=== PATIENT | female | born 1940 | race Caucasian/White ===

== ENCOUNTER 2017-09-07 06:55 | Day surgery (SDC) | payer MEDICARE ==
[2017-09-04 09:23] VITALS: BMI 38.6
[2017-09-07 08:23] LABS: #Lymphocytes 2.2 thou/uL (1.20-3.40); #Monocytes 0.5 thou/uL (0.11-0.59); #Neutrophils 4.8 thou/uL (1.40-6.50); %Basophils 0.5 % (0.0-1.0); %Eosinophils 0.5 % (0.0-10.0); %Lymphocytes 28.5 % (21.0-51.0); Hematocrit 38.7 % (36.0-47.0); Mean Platelet Volume 8.9 fL (7.4-10.4); Red Blood Cell (RBC) Count 4.16 mill/uL (4.20-5.40); White Blood Cell (WBC) Count 7.6 thou/uL (4.8-10.8)
[2017-09-07 08:32] LABS: PTT 32.8 SEC (22.9-36.1); Prothrombin Time 19.4 SEC (12.0-14.7)
[2017-09-07 08:41] LABS: Anion Gap 13 mmol/L (10-20); BUN (Urea Nitrogen) 27 mg/dL (9.8-20.1); Calc. Creatinine Clearance 52 mL/min (70-130); Calcium 9.6 mg/dL (7.8-10.44); Carbon Dioxide 25 mmol/L (23-31); Chloride 104 mmol/L (98-107); Estimated GFR-MDRD 34
[2017-09-07] MEDS ORDERED: Lidocaine 1% PF 5 ML VIAL ONE (09:26)
[2017-09-07] MEDS ORDERED: Propofol 200 MG/20 ML VIAL ONE (09:26)
--- NOTE | 2017-09-07 11:04 | OP ---
DATE OF PROCEDURE: 09/07/2017 PROCEDURE: Cardioversion. Ms. Cummins is a 77-year-old female with a history of persistent atrial fibrillation, status left of pul monary venous isolation procedure and prior pacemaker implantation for tachybrady syndrome. Now she is here for an early recurrence of atrial fibrillation, amiodarone has been restarted. Also, the pat ient has been anticoagulated with Eliquis without missing a dose. PROCEDURE: The patient received deep sedation by Anesthesia specialist with propofol. After adequat e level of sedation achieved, a synchronized 75 joule shock converted the patient back to sinus rhyth m. On repeat, 150 joule shock was unsuccessful. Eventually, a 300 joule shock converted her back to sinus rhythm. CONCLUSION: Successful cardioversion. PLAN: For now, continue amiodarone, taper down to 200 mg a day. Continue anticoagulation with Eliqu is. The patient is interested in switching back to Pradaxa due to financial reasons which could be p robably done at the next visit. We will interrogate the pacemaker and ascertain adequate function and likely turn atrial antitachycar stephen pacing therapies on if available.
== END 2017-09-07 11:35 | disposition home or self-care (01) ==
LOC: CCL 06:55
PROVIDERS: ATTEND Internal Medicine Cardiovascular Disease
DX: I48.1 Persistent atrial fibrillation (principal); I10 Essential (primary) hypertension; E66.9 Obesity, unspecified; Z68.38 Body mass index [BMI] 38.0-38.9, adult; Z79.01 Long term (current) use of anticoagulants; Z79.899 Other long term (current) drug therapy; Z95.0 Presence of cardiac pacemaker; Z90.49 Acquired absence of other specified parts of digestive tract; Z98.890 Other specified postprocedural states
CPT/HCPCS: 36415; 80048; 85025; 85610; 85730; 92960; 93005; 93010; J2001; J2704

== ENCOUNTER 2020-05-15 23:55 | Emergency (ER) | payer MEDICARE, MEDICAID ==
[2020-05-16 00:41] LABS: #Lymphocytes 0.6 thou/uL (1.20-3.40); #Monocytes 0.6 thou/uL (0.11-0.59); #Neutrophils 6.3 thou/uL (1.40-6.50); %Basophils 0.1 % (0.0-1.0); %Eosinophils 0.6 % (0.0-10.0); %Lymphocytes 8.4 % (21.0-51.0); Hemoglobin 11.5 g/dL (12.0-16.0); Mean Corpuscular HGB CONC 31.8 g/dL (32.0-36.0); Mean Corpuscular Hemoglobin 28.5 pg (27.0-31.0); Mean Corpuscular Volume 89.8 fL (78.0-98.0); Mean Platelet Volume 10.1 fL (7.4-10.4); Platelet Count 185 thou/uL (130-400); RBC Distribution Width 13.2 % (11.5-14.5); Red Blood Cell (RBC) Count 4.03 mill/uL (4.20-5.40); White Blood Cell (WBC) Count 7.6 thou/uL (4.8-10.8)
[2020-05-16 01:03] LABS: ALT (SGPT) 13 U/L (8-55); AST (SGOT) 15 U/L (5-34); Albumin 3.6 g/dL (3.4-4.8); Alkaline Phosphatase 61 U/L (40-110); Anion Gap 15 mmol/L (10-20); BUN (Urea Nitrogen) 40 mg/dL (9.8-20.1); Bilirubin, Total 0.2 mg/dL (0.2-1.2); Calc. Creatinine Clearance 0 mL/min (70-130); Calcium 8.5 mg/dL (7.8-10.44); Carbon Dioxide 19 mmol/L (23-31); Chloride 103 mmol/L (98-107); Estimated GFR-MDRD 16; Globulin 2.2 g/dL (2.4-3.5); Glucose 108 mg/dL (83-110); Potassium 4.2 mmol/L (3.5-5.1); Protein, Total 5.8 g/dL (6.0-8.3); Sodium 133 mmol/L (136-145)
[2020-05-16 02:05] LABS: Bilirubin Negative (Negative); Blood, Urine Negative (Negative); Clarity Clear (Clear); Glucose, Urine (Dipstick) Normal (Negative); Ketone, Urine Negative (Negative); Leukocyte Negative Leu/uL (Negative); Nitrite Negative (Negative); Protein, Urine (Dipstick) Negative (Neg-Trace); Urobilinogen Normal mg/dL (Less than 2); pH, Urine 5.5 (5.0-9.0)
== END 2020-05-16 05:44 | disposition home or self-care (01) ==
LOC: ERS 23:55
DX: I95.1 Orthostatic hypotension (principal); I48.91 Unspecified atrial fibrillation; I50.9 Heart failure, unspecified; Z87.891 Personal history of nicotine dependence; Z79.01 Long term (current) use of anticoagulants; Z79.899 Other long term (current) drug therapy
CPT/HCPCS: 36415; 80053; 81003; 83605; 84484; 85025; 87040; 93005

== ENCOUNTER 2020-05-16 20:40 | Inpatient (IN) | payer MEDICARE, MEDICAID ==
[2020-05-16 21:24] LABS: Bilirubin Negative (Negative); Blood, Urine Negative (Negative); Clarity Clear (Clear); Glucose, Urine (Dipstick) Normal (Negative); Ketone, Urine Negative (Negative); Leukocyte Negative Leu/uL (Negative); Nitrite Negative (Negative); Protein, Urine (Dipstick) Negative (Neg-Trace); Specific Gravity, Urine 1.016 (1.002-1.036); Urobilinogen Normal mg/dL (Less than 2)
--- NOTE | 2020-05-16 21:24 | RAD ---
Exam: Chest one view HISTORY:Fever Comparison: 03/23/2013 FINDINGS: Cardiac silhouette:Cardiomegaly. Left-sided transvenous pacemaker with lead positioned over the expec dhara region of the right atrium and right ventricle Aorta: Atherosclerosis Pulmonary vessels: Normal Costophrenic angles: Clear LUNGS: Patchy interstitial opacities. Correlate for edema or infiltrate.. Pneumothorax: None Osseous abnormalities: None IMPRESSION: 1. Patchy interstitial opacities. Correlate for edema or infiltrate. Atherosclerosis.
[2020-05-16] MEDS ORDERED: cefTRIAXone\\ROCEPHIN 2 GM VIAL ONE (21:57)
[2020-05-16] MEDS ORDERED: Azithromycin 250 MG TAB ONE (21:57)
[2020-05-16] MEDS ORDERED: Acetaminophen 325 MG TAB ONE (21:57)
[2020-05-16 22:01] LABS: #Lymphocytes 0.4 thou/uL (1.20-3.40); #Monocytes 0.5 thou/uL (0.11-0.59); #Neutrophils 7.5 thou/uL (1.40-6.50); %Eosinophils 0.4 % (0.0-10.0); %Lymphocytes 4.4 % (21.0-51.0); %Neutrophils 89.2 % (42.0-75.0); Hemoglobin 10.8 g/dL (12.0-16.0); Mean Corpuscular HGB CONC 32.7 g/dL (32.0-36.0); Mean Corpuscular Hemoglobin 29.8 pg (27.0-31.0); Mean Corpuscular Volume 91.2 fL (78.0-98.0); Mean Platelet Volume 9.8 fL (7.4-10.4); Platelet Count 153 thou/uL (130-400); RBC Distribution Width 13.1 % (11.5-14.5); Red Blood Cell (RBC) Count 3.64 mill/uL (4.20-5.40); White Blood Cell (WBC) Count 8.4 thou/uL (4.8-10.8)
[2020-05-16 22:08] LABS: ALT (SGPT) 15 U/L (8-55); AST (SGOT) 25 U/L (5-34); Albumin 3.4 g/dL (3.4-4.8); Alkaline Phosphatase 53 U/L (40-110); Anion Gap 14 mmol/L (10-20); BUN (Urea Nitrogen) 37 mg/dL (9.8-20.1); Bilirubin, Total 0.2 mg/dL (0.2-1.2); Calc. Creatinine Clearance 0 mL/min (70-130); Calcium 8.1 mg/dL (7.8-10.44); Carbon Dioxide 18 mmol/L (23-31); Chloride 104 mmol/L (98-107); Estimated GFR-MDRD 18; Globulin 2.5 g/dL (2.4-3.5); Glucose 101 mg/dL (83-110); Potassium 3.9 mmol/L (3.5-5.1); Protein, Total 5.9 g/dL (6.0-8.3); Sodium 132 mmol/L (136-145)
[2020-05-16 23:24] LABS: SARS-CoV-2 NAA Rapid Test Not Detected (NotDetected)
[2020-05-17 00:49] LABS: Lactic Acid 0.9 mmol/L (0.5-2.2)
[2020-05-17] MEDS ORDERED: HYDROcodone/Acetaminophen 5/325 mg Tablet PO PRN (01:42)
[2020-05-17] MEDS ORDERED: cloNIDine 0.1 MG TAB PO PRN (01:42)
[2020-05-17] MEDS ORDERED: Acetaminophen 325 MG TAB PO PRN (01:42)
[2020-05-17] MEDS ORDERED: Labetalol HCl 100 MG/20 ML VIAL SLOW IVP PRN (01:42)
[2020-05-17] MEDS ORDERED: Guaifenesin DM 100-10/5 ML UDCUP PO PRN (01:42)
[2020-05-17] MEDS ORDERED: Ondansetron PF 4 MG/2 ML Vial IVP PRN (01:42)
[2020-05-17] MEDS ORDERED: Morphine 2 MG/ML VIAL SLOW IVP PRN (01:42)
[2020-05-17] MEDS ORDERED: Promethazine HCl 12.5 MG in Sodium Chloride 0.9% 50 ML IVPB PRN (01:42)
[2020-05-17] MEDS ORDERED: hydrALAZINE 20 MG/ML VIAL SLOW IVP PRN (01:42)
--- NOTE | 2020-05-17 01:45 | PDOC.HHP ---
Hospitalist HPI - History of Present Illness Shortness of breath, near syncope History of Present Illness: Patient is an 80 year old female with PMH afib w/ pacemaker who presents to ED for fall x2. She reports 2 falls in restroom landing on bottom in restroom, she has chronic sciatica and R hip arthritis whch have been worse since then, she reports dehydration last few days. She reports dizziness. Denies head trauma or loc. She has recent UTI dx and on bactrim. She denies fever, cough, chest pain. She has pacemaker, sees Dr Humphrey for afib, has had 5 dccv and still has afib, on eliquis and compliant. In ED, labs significant for Cr 2.5, na 132, hgb 10. la 2.5, infiltrates patchy concerning for edema or infiltrate. patient admitted for workup of the above. given azithromycin and ceftriaxone for possible pneumonia. given NS for lactic acid elevation. COVID rapid swab negative. Hospitalist ROS - Review of Systems Constitutional: reports: weakness, malaise Eyes: denies: pain, vision change, conjunctivae inflammation, eyelid inflammation, redness, other ENT: denies: ear pain, ear discharge, nose pain, nose discharge, nose congestion , mouth pain, mouth swelling, throat pain, throat swelling, other Respiratory: denies: cough, dry, shortness of breath, hemoptysis, SOB with excertion, pleuritic pain, sputum, wheezing, other Cardiovascular: denies: chest pain, palpitations, orthopnea, paroxysmal noc. dyspnea, edema, light headedness, other Gastrointestinal: denies: nausea, vomiting, abdominal pain, diarrhea, constipation, melena, hematochezia, other Genitourinary: denies: dysuria, frequency, incontinence, hematuria, retention, other Musculoskeletal: denies: neck pain, shoulder pain, arm pain, back pain, hand pain, leg pain, foot pain, other Skin: denies: rash, lesions, ra, bruising, other Neurological: denies: weakness, numbness, incoordination, change in speech, confusion, seizures, other Other: dizziness, near syncope All other systems reviewed; all pertinent +/- noted in HPI/Subj Hospitalist History - Past Medical History Other Medical History: afib, chf - Past Surgical History Other Surgical History: pacemaker - Family History Family History: reports: no pertinent history - Social History Smoking Status: Never smoker Alcohol: reports: None Drugs: reports: none - Exam General Appearance: NAD, awake alert Eye: PERRL, anicteric sclera ENT: normocephalic atraumatic, no oropharyngeal lesions, moist mucosa Neck: supple, symmetric, no JVD, no thyromegaly, no lymphadenopathy, no carotid bruit Heart: RRR, no murmur, no gallops, no rubs, normal peripheral pulses Respiratory: CTAB, no wheezes, no rales, no ronchi, normal chest expansion, no tachypnea, normal percussion Gastrointestinal: soft, non-tender, non-distended, normal bowel sounds, no palpable masses, no hepatomegaly, no splenomegaly, no bruit Extremities: no cyanosis, no clubbing, no edema Skin: normal turgor, no lesions, no rashes Neurological: cranial nerve grossly intact, normal sensation to touch, no weakness, no focal deficits, no new deficit Musculoskeletal: normal tone, normal strength, no muscle wasting Psychiatric: normal affect, normal behavior, A&O x 3 Hospitalist Results - Labs Result Diagrams: 05/17/20 01:59 05/17/20 01:58 Lab results: WBC 8.4 thou/uL (4.8-10.8) 05/16/20 21:28 Hgb 10.8 g/dL (12.0-16.0) L 05/16/20 21:28 Hct 33.2 % (36.0-47.0) L 05/16/20 21:28 MCV 91.2 fL (78.0-98.0) 05/16/20 21:28 Plt Count 153 thou/uL (130-400) 05/16/20 21:28 Neutrophils % 89.2 % (42.0-75.0) H 05/16/20 21:28 Sodium 132 mmol/L (136-145) L 05/16/20 21:28 Potassium 3.9 mmol/L (3.5-5.1) 05/16/20 21:28 Chloride 104 mmol/L (98-107) 05/16/20 21:28 Carbon Dioxide 18 mmol/L (23-31) L 05/16/20 21:28 BUN 37 mg/dL (9.8-20.1) H 05/16/20 21:28 Creatinine 2.52 mg/dL (0.6-1.1) H 05/16/20 21:28 Glucose 101 mg/dL (83-110) 05/16/20 21:28 Lactic Acid 0.9 mmol/L (0.5-2.2) 05/17/20 00:12 Calcium 8.1 mg/dL (7.8-10.44) 05/16/20 21:28 Total Bilirubin 0.2 mg/dL (0.2-1.2) 05/16/20 21:28 AST 25 U/L (5-34) 05/16/20 21:28 ALT 15 U/L (8-55) 05/16/20 21:28 Alkaline Phosphatase 53 U/L (40-110) 05/16/20 21:28 Troponin I 0.016 ng/mL (< 0.028) 05/16/20 21:28 B-Natriuretic Peptide 345.0 pg/mL (0-100) H 05/16/20 21:28 Serum Total Protein 5.9 g/dL (6.0-8.3) L 05/16/20 21:28 Albumin 3.4 g/dL (3.4-4.8) 05/16/20 21:28 Urine Ketones Negative mg/dL (Negative) 05/16/20 21:15 Urine Blood Negative (Negative) 05/16/20 21:15 Urine Nitrite Negative (Negative) 05/16/20 21:15 Ur Leukocyte Esterase Negative Mariama/uL (Negative) 05/16/20 21:15 Additional comment: VITAL SIGNS Wed May 16, 2020 23:59 LAKESHA Nicole, Gin BP: 91/64 MAP: 73 Pulse: 91 Resp: 16 Temp: 99.3 (Oral) Pain: 0 O2 sat: 96 on (Room Air) Time: 05/16/2020 23:59. - EKG Interpretation EKG: afib, 99 bpm, PVCs, no ST elevations or dropped beats Hospitalist H&P A/P - Plan Plan: Patient is an 80 year old female with PMH afib w/ pacemaker who presents to ED for fall x2. # fall x 2 # history of CHF, afib # infiltrates on CXR # hip pain - admit to telemetry - resume home meds - covid negative by rapid screen - continue azithromycin/ceftriaxone - CT pelvis and l spine in AM - consider cardiology consult Dr Humphrey is home gizzard puller
[2020-05-17 01:46] VITALS: BMI 40.1
[2020-05-17 02:21] LABS: #Lymphocytes 0.5 thou/uL (1.20-3.40); #Monocytes 0.5 thou/uL (0.11-0.59); %Basophils 0.1 % (0.0-1.0); %Eosinophils 0.7 % (0.0-10.0); %Lymphocytes 8.5 % (21.0-51.0); %Monocytes 7.6 % (0.0-10.0); Hemoglobin 10.2 g/dL (12.0-16.0); Mean Corpuscular Hemoglobin 29.9 pg (27.0-31.0); Mean Corpuscular Volume 90.6 fL (78.0-98.0); Mean Platelet Volume 9.5 fL (7.4-10.4); Platelet Count 145 thou/uL (130-400); RBC Distribution Width 13.2 % (11.5-14.5)
[2020-05-17 02:57] LABS: Anion Gap 13 mmol/L (10-20); BUN (Urea Nitrogen) 38 mg/dL (9.8-20.1); Calc. Creatinine Clearance 34 mL/min (70-130); Calcium 8.3 mg/dL (7.8-10.44); Carbon Dioxide 18 mmol/L (23-31); Chloride 107 mmol/L (98-107); Estimated GFR-MDRD 20; Glucose 97 mg/dL (83-110); Potassium 3.9 mmol/L (3.5-5.1); Sodium 134 mmol/L (136-145)
[2020-05-17 05:13] LABS: Troponin I 0.022 ng/mL (< 0.028)
[2020-05-17] MEDS: Famotidine 20 MG TAB PO SCH (09:52)
[2020-05-17] MEDS: Furosemide 40 MG TAB PO SCH (09:52)
[2020-05-17] MEDS: Apixaban 5 MG TAB PO SCH ×2 (09:53→22:25)
[2020-05-17] MEDS: Valsartan 80 MG TAB PO SCH ×2 (09:53→11:06)
[2020-05-17] MEDS: Azithromycin 250 MG TAB PO SCH (09:53)
[2020-05-17] MEDS: Hydrochlorothiazide 25 MG TAB PO SCH ×2 (09:53→11:06)
[2020-05-17] MEDS: Polyethylene Glycol 3350 17 GM Packet PO SCH (09:54)
[2020-05-17] MEDS: Amiodarone 200 MG TAB PO SCH ×2 (10:01→22:25)
--- NOTE | 2020-05-17 10:50 | CT ---
CT OF THE PELVIS WIHTOUT CONTRAST: INDICATION: History of sciatic pain after fall. COMPARISON: None. FINDINGS: There is advanced osteoarthrosis involving the right hip. There is mild degenerative arthrosis of th e left hip. There is diffuse osteopenia. There is moderate degenerative change of both SI joints. There is advanced degenerative disk disease at L5-S1. There is advanced facet osteoarthrosis at L5-S 1. Visualized intrapelvic contents demonstrate numerous pheloboliths within the lower pelvis. The bl adder is moderately distended. Reproductive structures are unremarkable-appearing. There are modera te calcifications involving the pelvic vasculature. There is scattered colonic diverticula. IMPRESSION: 1. No definite acute fracture demonstrated. 2. Advanced right hip and mild left hip osteoarthrosis. 3. Advanced degenerative osteoarthritic change at L5-S1. 4. Moderate degenerative change of both sacroiliac joints. 5. Colonic diverticulosis. POS: [facility]
--- NOTE | 2020-05-17 11:07 | CT ---
CT LUMBAR SPINE WITHOUT CONTRAST: Date: 05/17/2020 INDICATION: Fall with low back pain and right hip pain. Right sciatica pain. No comparison. FINDINGS: The vertebral bodies of lumbar spine maintain normal height. No evidence of acute compression fractur e. There is osteopenia and moderate degenerative changes with osteophytes from the anterior and later al lumbar vertebra. There is loss of disc space at L5-S1. The other lumbar disc spaces are preserved. Prominent degenerative disc and end plate changes at L5-S1 with vacuum phenomenon. Findings at each disc level are described: L1-2: Mild disc bulge. Moderate facet hypertrophy. Moderate central canal stenosis. L2-3: Mild disc bulge. Moderate facet hypertrophy. Mild central canal stenosis. Mild bilateral jessica inal narrowing due to facet hypertrophy. L3-4: Broad based disc bulge. Prominent facet hypertrophy. Moderate central canal stenosis. Mild lef t foraminal encroachment from the disc bulge and facet hypertrophy. L4-5: Broad based disc bulge. Prominent facet hypertrophy. Moderate central canal stenosis. No signi ficant foraminal stenosis. L5-S1: Broad based disc bulge abuts the thecal sac and appears to impinge on both traversing S1 nerv e roots. Prominent facet hypertrophy. Mild central canal stenosis. Mild bilateral foraminal stenosis due to the diffuse disc bulge and the prominent facet hypertrophy. Soft tissue windows reveals a 3.5 cm right adrenal mass and a 2.3 cm left adrenal mass. Both of these exhibit CT densities indicating fat content which would indicate benign bilateral myelolipomas. IMPRESSION: 1. Degenerative changes of the lumbar spine with prominent loss of disc space and degenerative disc change at L5-S1. See findings at each level described above. 2. 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 POS: [facility]
[2020-05-17] MEDS: cefTRIAXone\\ROCEPHIN 1 GM in Sodium Chloride 0.9% 100 ML IVPB SCH (22:26)
[2020-05-17] MEDS: Simvastatin 10 MG TAB PO SCH (22:26)
[2020-05-18 05:34] LABS: #Lymphocytes 1.1 thou/uL (1.20-3.40); #Monocytes 0.5 thou/uL (0.11-0.59); %Eosinophils 0.5 % (0.0-10.0); %Lymphocytes 23.9 % (21.0-51.0); %Monocytes 11.2 % (0.0-10.0); %Neutrophils 64.3 % (42.0-75.0); Hemoglobin 10.2 g/dL (12.0-16.0); Mean Corpuscular HGB CONC 32.3 g/dL (32.0-36.0); Mean Corpuscular Hemoglobin 29.2 pg (27.0-31.0); Mean Corpuscular Volume 90.5 fL (78.0-98.0); Mean Platelet Volume 9.7 fL (7.4-10.4); Platelet Count 132 thou/uL (130-400); RBC Distribution Width 13.1 % (11.5-14.5); Red Blood Cell (RBC) Count 3.48 mill/uL (4.20-5.40); White Blood Cell (WBC) Count 4.7 thou/uL (4.8-10.8)
[2020-05-18 05:56] LABS: Anion Gap 12 mmol/L (10-20); BUN (Urea Nitrogen) 31 mg/dL (9.8-20.1); Calc. Creatinine Clearance 39 mL/min (70-130); Calcium 8.1 mg/dL (7.8-10.44); Carbon Dioxide 21 mmol/L (23-31); Chloride 106 mmol/L (98-107); Estimated GFR-MDRD 24; Glucose 84 mg/dL (83-110); Sodium 136 mmol/L (136-145)
[2020-05-18 05:58] LABS: Potassium 3.4 mmol/L (3.5-5.1)
[2020-05-18] MEDS ORDERED: Sodium Chloride 0.9% 10 ML ONE (08:00)
[2020-05-18 09:19] LABS: Hemoglobin 10.4 g/dL (12.0-16.0); Platelet Count 132 thou/uL (130-400)
[2020-05-18] MEDS: Valsartan 80 MG TAB PO SCH (09:33)
[2020-05-18] MEDS: Hydrochlorothiazide 25 MG TAB PO SCH (09:35)
[2020-05-18] MEDS: Famotidine 20 MG TAB PO SCH (09:35)
[2020-05-18] MEDS: Apixaban 5 MG TAB PO SCH ×2 (09:35→21:58)
[2020-05-18] MEDS: Azithromycin 250 MG TAB PO SCH (09:35)
[2020-05-18] MEDS: Amiodarone 200 MG TAB PO SCH (09:38)
[2020-05-18] MEDS: Furosemide 40 MG TAB PO SCH (09:38)
[2020-05-18] MEDS: Polyethylene Glycol 3350 17 GM Packet PO SCH (09:39)
--- NOTE | 2020-05-18 18:22 | PDOC.HOSPP ---
- Subjective Encounter Date: 05/18/20 Encounter Time: 07:30 Subjective: Patient was seen for follow-up for pneumonia. She denies any chest pain. - Objective Vital Signs & Weight: Vital Signs (12 hours) Temp Pulse Pulse Pulse Resp BP BP 05/18/20 15:35 98.5 F 22 L 96 H 05/18/20 14:20 117 H 107 H 111/60 103/51 L 05/18/20 12:43 97.6 F 103 H 14 05/18/20 08:00 98.8 F 107 H 18 BP BP Pulse Ox Pulse Ox 05/18/20 15:35 118/57 L 97 05/18/20 14:20 96 05/18/20 12:43 105/52 L 97 05/18/20 08:00 114/55 L 98 Weight Weight 243 lb 4.8 oz I&O: 05/17/20 05/18/20 05/19/20 06:59 06:59 06:59 Intake Total 240 960 Output Total 200 2150 Balance 40 -1190 Result Diagrams: 05/18/20 08:27 05/18/20 08:27 Additional Labs: Labs and MAR's were reviewed by me EKG Reviewed by me: Yes (Telemetry: Atrial fibrillation) Hospitalist ROS - Review of Systems Constitutional: reports: weakness Cardiovascular: denies: chest pain, palpitations, orthopnea, paroxysmal noc. dyspnea, edema, light headedness Gastrointestinal: denies: nausea, vomiting, abdominal pain, diarrhea, constipation, melena, hematochezia - Medication Medications: Active Medications Generic Name Dose Route Start Last Admin Trade Name Claudeq PRN Reason Stop Dose Admin Acetaminophen 650 mg 05/17/20 01:42 05/17/20 09:51 Tylenol PO 650 mg Q4H PRN Administration Headache/Fever/Mild Pain (1-3) Apixaban 5 mg 05/17/20 09:00 05/18/20 09:35 Eliquis PO 5 mg BID NIKHIL Administration Azithromycin 250 mg 05/17/20 09:00 05/18/20 09:35 Zithromax PO 05/20/20 09:01 250 mg DAILY NIKHIL Administration Famotidine 20 mg 05/17/20 09:00 05/18/20 09:35 Pepcid PO 20 mg QAM NIKHIL Administration Furosemide 40 mg 05/17/20 09:00 05/18/20 09:38 Lasix PO 40 mg QAM NIKHIL Administration Hydrochlorothiazide 25 mg 05/17/20 09:00 05/18/20 09:35 Hydrochlorothiazide PO 25 mg QAM NIKHIL Administration Ceftriaxone Sodium 1 gm/ 100 mls @ 200 mls/hr 05/17/20 21:00 05/17/20 22:26 Sodium Chloride IVPB 100 mls Q24HR NIKHIL Administration Polyethylene Glycol 17 gm 05/17/20 09:00 05/18/20 09:39 Miralax PO Not Given DAILY NIKHIL Simvastatin 10 mg 05/17/20 21:00 05/17/20 22:26 Zocor PO 10 mg QPM NIKHIL Administration Valsartan 160 mg 05/17/20 09:00 05/18/20 09:33 Diovan PO 160 mg QAM NIKHIL Administration - Exam General Appearance: awake alert General - other findings: Obese Eye: anicteric sclera ENT: moist mucosa Neck: supple Heart: no rubs, irregular Respiratory: CTAB, normal chest expansion Gastrointestinal: soft, non-tender Extremities: no cyanosis Skin - other findings: Multiple bruises Neurological: no weakness Psychiatric: normal affect, normal behavior, A&O x 3 Hosp A/P - Plan #pneumonia #acute on chronic stage 4 renal failure # fall x 2 # history of CHF, afib # hip pain -Continue ceftriaxone and azithromycin -PT recommends rehab versus home with home health depending on progression - covid negative by rapid screen -nil acute on CT pelvis and lumbar spine; bilateral adrenal masses, 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 Interrogate pacemaker
[2020-05-18] MEDS: cefTRIAXone\\ROCEPHIN 1 GM in Sodium Chloride 0.9% 100 ML IVPB SCH (21:58)
[2020-05-18] MEDS: Simvastatin 10 MG TAB PO SCH (21:58)
[2020-05-19 04:49] LABS: #Lymphocytes 1.1 thou/uL (1.20-3.40); #Monocytes 0.6 thou/uL (0.11-0.59); #Neutrophils 3.3 thou/uL (1.40-6.50); %Basophils 0.4 % (0.0-1.0); %Eosinophils 0.8 % (0.0-10.0); %Lymphocytes 22.5 % (21.0-51.0); %Monocytes 10.9 % (0.0-10.0); %Neutrophils 65.4 % (42.0-75.0); Hemoglobin 10.5 g/dL (12.0-16.0); Mean Corpuscular HGB CONC 32.5 g/dL (32.0-36.0); Mean Corpuscular Volume 89.3 fL (78.0-98.0); Mean Platelet Volume 9.7 fL (7.4-10.4); Platelet Count 133 thou/uL (130-400); RBC Distribution Width 13.1 % (11.5-14.5); Red Blood Cell (RBC) Count 3.61 mill/uL (4.20-5.40); White Blood Cell (WBC) Count 5.1 thou/uL (4.8-10.8)
[2020-05-19 05:03] LABS: Anion Gap 11 mmol/L (10-20); BUN (Urea Nitrogen) 30 mg/dL (9.8-20.1); Calc. Creatinine Clearance 43 mL/min (70-130); Carbon Dioxide 22 mmol/L (23-31); Chloride 106 mmol/L (98-107); Estimated GFR-MDRD 27; Glucose 97 mg/dL (83-110); Magnesium 1.9 mg/dL (1.6-2.6); Potassium 3.1 mmol/L (3.5-5.1); Sodium 136 mmol/L (136-145)
[2020-05-19] MEDS: Furosemide 40 MG TAB PO SCH (08:50)
[2020-05-19] MEDS: Apixaban 5 MG TAB PO SCH ×2 (08:50→22:04)
[2020-05-19] MEDS: Famotidine 20 MG TAB PO SCH (08:50)
[2020-05-19] MEDS: Azithromycin 250 MG TAB PO SCH (08:50)
[2020-05-19] MEDS: Hydrochlorothiazide 25 MG TAB PO SCH (08:50)
[2020-05-19] MEDS: Valsartan 80 MG TAB PO SCH (08:50)
[2020-05-19] MEDS: Polyethylene Glycol 3350 17 GM Packet PO SCH (08:51)
--- NOTE | 2020-05-19 14:55 | PDOC.HOSPP ---
- Subjective Encounter Date: 05/19/20 Encounter Time: 07:30 Subjective: Patient was seen for follow-up regarding pneumonia. She reports feeling better. She denies any chest pain or shortness of breath. - Objective Vital Signs & Weight: Vital Signs (12 hours) Temp Pulse Resp BP BP Pulse Ox 05/19/20 11:36 97.6 F 101 H 14 100/61 98 05/19/20 08:00 98.3 F 113 H 22 H 135/59 L 96 05/19/20 03:55 98.5 F 90 20 122/65 95 Weight Weight 242 lb 14.4 oz I&O: 05/18/20 05/19/20 05/20/20 06:59 06:59 06:59 Intake Total 960 580 Output Total 2150 1200 Balance -1190 -620 Result Diagrams: 05/19/20 04:33 05/19/20 04:33 Additional Labs: MAR and labs were reviewed by me. EKG Reviewed by me: Yes (Telemetry: Atrial fibrillation) Hospitalist ROS - Review of Systems Constitutional: reports: weakness Respiratory: denies: cough, dry, shortness of breath, hemoptysis, SOB with excertion, pleuritic pain, sputum, wheezing Cardiovascular: reports: other. denies: chest pain, palpitations, orthopnea, paroxysmal noc. dyspnea, edema, light headedness - Medication Medications: Active Medications Generic Name Dose Route Start Last Admin Trade Name Freq PRN Reason Stop Dose Admin Acetaminophen 650 mg 05/17/20 01:42 05/17/20 09:51 Tylenol PO 650 mg Q4H PRN Administration Headache/Fever/Mild Pain (1-3) Apixaban 5 mg 05/17/20 09:00 05/19/20 08:50 Eliquis PO 5 mg BID NIKHIL Administration Azithromycin 250 mg 05/17/20 09:00 05/19/20 08:50 Zithromax PO 05/20/20 09:01 250 mg DAILY NIKHIL Administration Famotidine 20 mg 05/17/20 09:00 05/19/20 08:50 Pepcid PO 20 mg QAM NIKHIL Administration Furosemide 40 mg 05/17/20 09:00 05/19/20 08:50 Lasix PO 40 mg QAM NIKHIL Administration Hydrochlorothiazide 25 mg 05/17/20 09:00 05/19/20 08:50 Hydrochlorothiazide PO 25 mg QAM NIKHIL Administration Ceftriaxone Sodium 1 gm/ 100 mls @ 200 mls/hr 05/17/20 21:00 05/18/20 21:58 Sodium Chloride IVPB 100 mls Q24HR NIKHIL Administration Polyethylene Glycol 17 gm 05/17/20 09:00 05/19/20 08:51 Miralax PO Not Given DAILY NIKHIL Simvastatin 10 mg 05/17/20 21:00 05/18/20 21:58 Zocor PO 10 mg QPM NIKHIL Administration Valsartan 160 mg 05/17/20 09:00 05/19/20 08:50 Diovan PO 160 mg QAM NIKHIL Administration - Exam General Appearance: awake alert General - other findings: Obese Eye: anicteric sclera ENT: moist mucosa Neck: supple Heart: no rubs, irregular Respiratory: CTAB Gastrointestinal: soft, non-tender Psychiatric: normal affect, normal behavior Hosp A/P - Plan #pneumonia #acute on chronic stage 4 renal failure # fall x 2 # history of CHF, afib # hip pain -Switch to oral antibiotics -Rehab eval pending - covid negative by rapid screen - 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
[2020-05-19] MEDS ORDERED: Potassium Chloride 20 MEQ TAB PO SCH (15:00)
[2020-05-19] MEDS: Cefdinir 300 MG CAP PO SCH (22:04)
[2020-05-19] MEDS: Simvastatin 10 MG TAB PO SCH (22:05)
[2020-05-20] MEDS: Polyethylene Glycol 3350 17 GM Packet PO SCH (09:07)
[2020-05-20] MEDS: Famotidine 20 MG TAB PO SCH (09:08)
[2020-05-20] MEDS: Valsartan 80 MG TAB PO SCH (09:08)
[2020-05-20] MEDS: Hydrochlorothiazide 25 MG TAB PO SCH (09:08)
[2020-05-20] MEDS: Apixaban 5 MG TAB PO SCH ×2 (09:09→21:20)
[2020-05-20] MEDS: Azithromycin 250 MG TAB PO SCH (09:09)
[2020-05-20] MEDS: Furosemide 40 MG TAB PO SCH (09:09)
[2020-05-20] MEDS: Cefdinir 300 MG CAP PO SCH ×2 (09:09→21:20)
[2020-05-20 11:25] LABS: Potassium 3.6 mmol/L (3.5-5.1)
--- NOTE | 2020-05-20 15:24 | PDOC.HOSPP ---
- Subjective Encounter Date: 05/20/20 Encounter Time: 15:22 Subjective: Ms. Cummins was seen today in follow-up of fall, and hip pain. She says she is doing better. She does not have any new complaints. - Objective Vital Signs & Weight: Vital Signs (12 hours) Temp Pulse Pulse Pulse Resp BP BP 05/20/20 12:53 105 H 90 135/68 117/75 05/20/20 11:10 98.1 F 103 H 16 05/20/20 09:09 05/20/20 08:14 97.3 F L 103 H 14 05/20/20 05:06 BP Pulse Ox 05/20/20 12:53 05/20/20 11:10 99/59 L 95 05/20/20 09:09 97 05/20/20 08:14 117/74 96 05/20/20 05:06 118/72 Weight Weight 244 lb 1.6 oz I&O: 05/19/20 05/20/20 05/21/20 06:59 06:59 06:59 Intake Total 580 670 Output Total 1200 350 Balance -620 320 Result Diagrams: 05/19/20 04:33 05/20/20 10:50 Hospitalist ROS - Medication Medications: Active Medications Generic Name Dose Route Start Last Admin Trade Name Freq PRN Reason Stop Dose Admin Acetaminophen 650 mg 05/17/20 01:42 05/17/20 09:51 Tylenol PO 650 mg Q4H PRN Administration Headache/Fever/Mild Pain (1-3) Apixaban 5 mg 05/17/20 09:00 05/20/20 09:09 Eliquis PO 5 mg BID NIKHIL Administration Cefdinir 300 mg 05/19/20 21:00 05/20/20 09:09 Omnicef PO 300 mg BID NIKHIL Administration Famotidine 20 mg 05/17/20 09:00 05/20/20 09:08 Pepcid PO 20 mg QAM NIKHIL Administration Furosemide 40 mg 05/17/20 09:00 05/20/20 09:09 Lasix PO 40 mg QAM NIKHIL Administration Hydrochlorothiazide 25 mg 05/17/20 09:00 05/20/20 09:08 Hydrochlorothiazide PO 25 mg QAM NIKHIL Administration Polyethylene Glycol 17 gm 05/17/20 09:00 05/20/20 09:07 Miralax PO Not Given DAILY NIKHIL Simvastatin 10 mg 05/17/20 21:00 05/19/20 22:05 Zocor PO 10 mg QPM NIKHIL Administration Valsartan 160 mg 05/17/20 09:00 05/20/20 09:08 Diovan PO 160 mg QAM NIKHIL Administration - Exam Eye: PERRL, anicteric sclera Heart: irregular Respiratory: CTAB, no wheezes, no rales, no ronchi, normal chest expansion Gastrointestinal: soft, non-tender, non-distended, normal bowel sounds Extremities: no cyanosis, no edema Hosp A/P (1) Fall Code(s): W19.XXXA - UNSPECIFIED FALL, INITIAL ENCOUNTER Status: Acute (2) Atrial fibrillation Code(s): I48.91 - UNSPECIFIED ATRIAL FIBRILLATION Status: Acute (3) CHF (congestive heart failure) Code(s): I50.9 - HEART FAILURE, UNSPECIFIED Status: Acute - Plan * Fall with hip pain- there was no evidence of fracture on CT scan * Continue PT/OT * CHF- unknown type- she is clinically compensated * AFIB- her heart rate is stable, and continue Eliquis for stroke prevention
[2020-05-20] MEDS: Simvastatin 10 MG TAB PO SCH (21:21)
[2020-05-21 08:45] LABS: Hemoglobin 11.6 g/dL (12.0-16.0); Mean Corpuscular HGB CONC 33.6 g/dL (32.0-36.0); Mean Corpuscular Hemoglobin 30.2 pg (27.0-31.0); Mean Corpuscular Volume 89.7 fL (78.0-98.0); Mean Platelet Volume 9.3 fL (7.4-10.4); Platelet Count 179 thou/uL (130-400); RBC Distribution Width 13.2 % (11.5-14.5); Red Blood Cell (RBC) Count 3.85 mill/uL (4.20-5.40); White Blood Cell (WBC) Count 7.1 thou/uL (4.8-10.8)
[2020-05-21 09:01] LABS: Anion Gap 14 mmol/L (10-20); BUN (Urea Nitrogen) 27 mg/dL (9.8-20.1); Calc. Creatinine Clearance 49 mL/min (70-130); Calcium 8.6 mg/dL (7.8-10.44); Carbon Dioxide 21 mmol/L (23-31); Chloride 106 mmol/L (98-107); Estimated GFR-MDRD 31; Glucose 136 mg/dL (83-110); Potassium 3.8 mmol/L (3.5-5.1); Sodium 137 mmol/L (136-145)
[2020-05-21 10:07] LABS: Eosinophils 2 % (0-10); Lymphocytes 53 % (21-51); MDiff Complete? YES; Monocytes 2 % (0-10); Neutrophil 42 % (42-75); Platelet Morphology Comment Appears Adequate; Polychromasia SLIGHT = 2-3 cells (100X) (0-2/hpf); Reactive Lymphocytes 1 % (0-10)
[2020-05-21] MEDS: Valsartan 80 MG TAB PO SCH (10:41)
[2020-05-21] MEDS: Hydrochlorothiazide 25 MG TAB PO SCH (10:41)
[2020-05-21] MEDS: Famotidine 20 MG TAB PO SCH (10:41)
[2020-05-21] MEDS: Furosemide 40 MG TAB PO SCH (10:41)
[2020-05-21] MEDS: Polyethylene Glycol 3350 17 GM Packet PO SCH (10:42)
[2020-05-21] MEDS: Apixaban 5 MG TAB PO SCH (10:42)
[2020-05-21] MEDS: Cefdinir 300 MG CAP PO SCH (10:42)
--- NOTE | 2020-05-21 11:48 | PDOC.HOSPP ---
- Subjective Encounter Date: 05/21/20 Encounter Time: 11:47 Subjective: Ms. Cummins was seen today in follow-up of fall. She does not have any new complaints. - Objective Vital Signs & Weight: Vital Signs (12 hours) Temp Pulse Resp BP Pulse Ox 05/21/20 07:43 97.6 F 100 18 124/58 L 96 05/21/20 04:54 97.9 F 97 20 106/75 94 L 05/21/20 01:00 92 Weight Weight 241 lb 4.8 oz I&O: 05/20/20 05/21/20 05/22/20 06:59 06:59 06:59 Intake Total 670 990 Output Total 350 Balance 320 990 Result Diagrams: 05/21/20 08:28 05/21/20 08:28 Hospitalist ROS - Medication Medications: Active Medications Generic Name Dose Route Start Last Admin Trade Name Freq PRN Reason Stop Dose Admin Acetaminophen 650 mg 05/17/20 01:42 05/17/20 09:51 Tylenol PO 650 mg Q4H PRN Administration Headache/Fever/Mild Pain (1-3) Apixaban 5 mg 05/17/20 09:00 05/21/20 10:42 Eliquis PO 5 mg BID NIKHIL Administration Cefdinir 300 mg 05/19/20 21:00 05/21/20 10:42 Omnicef PO 300 mg BID NIKHIL Administration Famotidine 20 mg 05/17/20 09:00 05/21/20 10:41 Pepcid PO 20 mg QAM NIKHIL Administration Furosemide 40 mg 05/17/20 09:00 05/21/20 10:41 Lasix PO 40 mg QAM NIKHIL Administration Hydrochlorothiazide 25 mg 05/17/20 09:00 05/21/20 10:41 Hydrochlorothiazide PO 25 mg QAM NIKHIL Administration Polyethylene Glycol 17 gm 05/17/20 09:00 05/21/20 10:42 Miralax PO Not Given DAILY NIKHIL Simvastatin 10 mg 05/17/20 21:00 05/20/20 21:21 Zocor PO 10 mg QPM NIKHIL Administration Valsartan 160 mg 05/17/20 09:00 05/21/20 10:41 Diovan PO 160 mg QAM NIKHIL Administration - Exam Eye: PERRL, anicteric sclera Heart: RRR, no murmur, no gallops, no rubs, normal peripheral pulses Respiratory: CTAB, no wheezes, no rales, no ronchi, normal chest expansion, no tachypnea Gastrointestinal: soft, non-tender, non-distended, normal bowel sounds, no palpable masses Extremities: no cyanosis, no edema Hosp A/P (1) Fall Code(s): W19.XXXA - UNSPECIFIED FALL, INITIAL ENCOUNTER Status: Acute (2) Atrial fibrillation Code(s): I48.91 - UNSPECIFIED ATRIAL FIBRILLATION Status: Acute (3) CHF (congestive heart failure) Code(s): I50.9 - HEART FAILURE, UNSPECIFIED Status: Acute - Plan * Fall with hip pain- * Continue PT/OT * CHF- unknown type- she is clinically compensated * AFIB- her heart rate is stable, and continue Eliquis for stroke prevention and will re-start Metoprolol * Stable for discharge to Rehab
[2020-05-21 13:10] VITALS: TEMP 97.7
[2020-05-21 14:49] VITALS: BP 126/57
--- NOTE | 2020-05-22 08:08 | DIS ---
DATE OF ADMISSION: 05/17/2020 DATE OF DISCHARGE: 05/21/2020 DISCHARGE DISPOSITION: Inpatient rehab. DISCHARGE DIAGNOSES: 1. Fall. 2. 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 3. Chronic atrial fibrillation. 4. Chronic anticoagulation. 5. Pneumonia. DISCHARGE MEDICATIONS: 1. Omnicef 300 mg one p.o. twice daily for 5 days. 2. Florastor 250 mg p.o. daily. 3. Potassium chloride 20 mEq daily. 4. Metoprolol-XL 50 mg daily. 5. Cozaar 100 mg p.o. daily. 6. Hydrochlorothiazide 25 mg daily. 7. Lasix 40 mg daily. 8. Eliquis 5 mg p.o. b.i.d. DIAGNOSTIC STUDIES: Imaging done during the hospital stay, she had a CT scan of the lumbar spine and pelvis, which demonstrated severe degenerative joint disease. CODE STATUS: Full code. ALLERGIES: NO KNOWN DRUG ALLERGIES. HOSPITAL COURSE: Ms. Cummins is a very pleasant 80-year-old female, who suffered a fall. She had severe pain in her hip and was concerned that she may have suffered a hip fracture. For this reason, she was brought to the emergency room. There, they did a CT scan of the hip, which was negative for any fracture of the pelvis or of the femur, but did show severe degenerative joint disease. She was having some difficulty with ambulation and given this and her advanced age, it was felt that she would benefit from a stay in rehab prior to being discharged home. She was also found to have chest x-ray findings suspicious for pneumonia and was placed on Omnicef for this. Otherwise, the patient was in stable condition and is being discharged home. Job ID: [id number]
[2020-05-22] MEDS ORDERED: Saccharomyces boulardii 250 MG CAP PO SCH (09:00)
--- NOTE | 2020-05-23 05:11 | PQF ---
Dear : Petar Jones Date : 05/23/20 Please exercise your independent, professional judgment in responding to the clarification form. Clinical indicators are provided on the bottom of this form for your review Can you please further clarify the diagnosis of the patient? Please check appropriate box(es): [ ] Sepsis [ X ] Localized infection without sepsis [ ] Other diagnosis [ ] Unable to determine In addition, please specify: Present on Admission (POA): [ X] Yes [ ] No [ ] Unable to determine Physician Signature: Date/Time: For continuity of documentation, please document condition throughout progress notes and discharge summary. Thank You. To be completed by CDI/Coding staff for physician review: Present Clinical Indicators - Signs / Symptoms / Labs Results and Location in Medical Record [ x ] Patchy internal opacities Chest X ray 05/16 [ x ] VS: BP 91/64, CO 91, RR 16, Temp 99.3 H and P pg.3 [ x ] WBC 8.4, 6.0, 4.7L, 5.1, 7.1 Laboratory [ x ] Lactic Acid 2.5H Laboratory [ x ] Blood culture no growth for 5 days Microbiology Present Risk Factors Results and Location in Medical Record [ x ] Former smoker ED Provider pg.1 [ x ] 80 years old H and P pg.1 [ x ] Recent UTI H and P pg.1 [ x ] Pneumonia H and P pg.1 [ x ] CHF and Afib H and P pg.1 Present Treatments Results and Location in Medical Record [ x ] Chest X ray 05/16 Chest X ray 05/16 folder [ x ] IV Fluids MAR [ x ] Blood cultures Microbiology [ x ] Urine culture Microbiology [ x ] Rocephin 2gm IV MAR [ x ] Azithromycin 250mg IV MAR [ x ] Omnicef 300mg PO MAR CDS/Fur Vault Attendant Signature: Randal Grewal Phone #: ext [phone] Date:05/23/20 MTDD
== END 2020-05-21 14:30 | DRG 194 ==
LOC: ERS 20:40 → 2NO 05-17 01:16
PROVIDERS: ADMIT Internal Medicine; ATTEND Internal Medicine
DX: J18.9 Pneumonia, unspecified organism (principal); E87.2 Acidosis; N17.9 Acute kidney failure, unspecified; N18.4 Chronic kidney disease, stage 4 (severe); I48.20 Chronic atrial fibrillation, unspecified; Z20.828 Contact with and (suspected) exposure to other viral communicable diseases; M16.11 Unilateral primary osteoarthritis, right hip; M54.30 Sciatica, unspecified side; D17.79 Benign lipomatous neoplasm of other sites; M47.816 Spondylosis without myelopathy or radiculopathy, lumbar region; I50.9 Heart failure, unspecified; R29.6 Repeated falls; Z95.0 Presence of cardiac pacemaker; Z87.891 Personal history of nicotine dependence; Z79.01 Long term (current) use of anticoagulants; Z79.899 Other long term (current) drug therapy
CPT/HCPCS: 36415; 51701; 71045; 72131; 72192; 80048; 80053; 81003; 83605; 83735; 83880; 84132; 84484; 85025; 87040; 87086; 93005; 96365; 96366; J0696; J3490; U0002

== ENCOUNTER 2020-07-04 05:28 | Inpatient (IN) | payer MEDICARE, MEDICAID, OTHER ==
[2020-07-04] MEDS ORDERED: Digoxin 0.5 MG/2 ML AMP ONE (06:20)
[2020-07-04] MEDS ORDERED: Cefepime 2 GM VIAL ONE ×2 (06:46→06:47)
[2020-07-04] MEDS ORDERED: Vancomycin 1 GM/200 ML BAG ONE (07:28)
[2020-07-04] MEDS ORDERED: Magnesium 2 GM/50 ML 2 GM in Premix Bag 1 BAG IVPB SCH (09:00)
--- NOTE | 2020-07-04 09:22 | PDOC.HHP ---
Hospitalist HPI - History of Present Illness Near syncope History of Present Illness: PCP: Paulo The patient is a 80-year-old female with a past medical history significant for permanent A. fib with RVR (on Eliquis) that presents to the ER via EMS for the above complaint. The patient reports that she was in her usual health yesterday afternoon until after eating out she developed several bouts of diarrhea for the past several hours. She says she thinks it was spicy shrimp that she ate. While preparing to go to bed, she got up to go to the restroom and became lightheaded and fell forward towards the toilet. She denies hitting her head. She denies LOC or vomiting. Denies headache or any focal weakness. Denies any chest pain, heart palpitations or shortness of breath. Admitted in hospital for PNA in May, denies fever. Denies abdominal pain, hematochezia or hematemesis. She has no urinary symptoms. At some point, she called her daughter, who then called EMS. When EMS arrived there was a reported SBP in the 80s, 1 L normal saline was given. Patient was subsequently brought to the ER for further evaluation. ED Course: Vital signs T 98.4, BP 116/64, HR 104, RR 20, SPO2 97% room air. Reported HR increase to 125 bpm. EKG: A. fib RVR Chest x-ray negative for acute process. Trop 0.029, BNP 316 WBC 16.3, lactic acid 3.3 K3.3, mag 1.6 BUN 34, creatinine 1.53 Blood/urine cultures pending Medication ministration: Digoxin 0.5 mg IV push x1 Cardizem 10 mg IV push x1 Vancomycin 1 g IV piggyback Cefepime 2 g IV piggyback Normal saline 500 mill IV bolus. Hospitalist ROS - Review of Systems Constitutional: denies: fever, chills Respiratory: denies: cough, shortness of breath Cardiovascular: reports: light headedness. denies: chest pain, palpitations Gastrointestinal: reports: diarrhea (3-4 stools). denies: nausea, vomiting, abdominal pain, melena, hematochezia Genitourinary: denies: dysuria, hematuria Neurological: denies: incoordination, change in speech, confusion - Medication Medications: 1. Eliquis 5 mg p.o. twice daily 2. Lasix 40 mg p.o. every morning 3. Losartan 50 mg p.o. daily 4. Metoprolol 50 mg p.o. daily 5. HCTZ 12.5 mg p.o. every morning 6. Simvastatin 10 mg p.o. daily 7. K-Dur 20 mEq p.o. daily 8. Gabapentin unknown dosing Allergies: NKDA Hospitalist History - Past Medical History Source: patient, family, RN notes reviewed Cardiac: reports: AFIB (Permanent), HTN, Hyperlipidemia - Past Surgical History Past Surgical History: reports: Appendectomy, Other (Permanent pacemaker (2016 or 2017), cardioversion x5, ablation x1) - Family History Family History: reports: cardiac disorder (Brother), cerebrovascular accident (Father) - Social History Smoking Status: Never smoker Alcohol: reports: None Drugs: reports: none Living Situation: Alone ([facility]) Occupation: Semiretired (tax practitioner) Activity level: uses cane/walker - Exam General Appearance: NAD, awake alert Eye: PERRL, anicteric sclera ENT: normocephalic atraumatic, dry oral mucosa Neck: supple, symmetric, no JVD Heart: no murmur, no gallops, no rubs, normal peripheral pulses, irregular Respiratory: CTAB, no wheezes, no rales, no ronchi, normal chest expansion, no tachypnea Gastrointestinal: soft, non-tender, no bruit, no guarding, no rigidity. negative: normal bowel sounds (Hyperactive) Extremities: no cyanosis. negative: no edema (Trace) Skin: no lesions, no rashes Neurological: cranial nerve grossly intact, normal sensation to touch, no weakness, no focal deficits Psychiatric: normal affect, A&O x 3 Hospitalist Results - Labs Result Diagrams: 07/04/20 06:00 07/04/20 06:00 - EKG Interpretation EKG: A. fib RVR - Radiology Interpretation Chest x-ray Status: image reviewed by me Additional Comment: No acute process. Hospitalist H&P A/P - Problem (1) Sepsis Code(s): A41.9 - SEPSIS, UNSPECIFIED ORGANISM Status: Acute (2) Atrial fibrillation with RVR Code(s): I48.91 - UNSPECIFIED ATRIAL FIBRILLATION Status: Acute (3) Near syncope Status: Acute (4) Dehydration Code(s): E86.0 - DEHYDRATION Status: Acute (5) Hypokalemia Code(s): E87.6 - HYPOKALEMIA Status: Acute (6) Low blood magnesium level Code(s): R79.0 - ABNORMAL LEVEL OF BLOOD MINERAL Status: Acute (7) Hypertension Code(s): I10 - ESSENTIAL (PRIMARY) HYPERTENSION Status: Chronic (8) Hyperlipidemia Code(s): E78.5 - HYPERLIPIDEMIA, UNSPECIFIED Status: Chronic - Plan Plan: 80/F PMH permanent atrial fibrillation with pacemaker presents for near syncopal episode. Admit to telemetry floor, inpatient status. Expected length of stay greater than 2 midnights. #Sepsis, suspected Presented tachycardic, mildly hypotensive in ED. EMS reported SBP 80s, given 1L NS. Trop 0.029, BNP 316 WBCs 16.3, lactic acid 3.3. CXR negative, UA pending Blood/urine CX pending Patient hospitalized for PNA in May, received abx. Get Stool studies. Continue broad-spectrum ABX, vancomycin and cefepime. Received 1.5 L IVF in ER, will continue IV fluid resuscitation. #Atrial fibrillation with RVR, permanent Presented heart rate 103, then shot up to [id number] in ER. Given digoxin 0.5 mg IVP and Cardizem 10 mg IVP with better rate control. Patient on Eliquis at home, will restart. Patient on metoprolol at home, will restart when blood pressures allow. Continue cardiac monitoring. Check TSH level. #Near syncope Likely secondary to fluid volume deficit due to diarrhea. EMS reported SBP 80s. EKG afib w/ RVR Trop 0.029, BNP 316 BUN 34, creatinine 1.53. Chest x-ray negative for FVO. Had echocardiogram several days ago, Dr. Humphrey told her she does not have heart failure and the echo looked good. No signs of GI bleed, CBC stable. Trend troponins. Cardiac monitoring. #Dehydration BUN 34, creatinine 1.53. Multiple episodes of diarrhea. Gentle IV fluid resuscitation. Recheck levels in the a.m. Fall precautions. #LAVELLE, suspected No baseline comparison at time of admission. Likely prerenal secondary to arrhythmia and dehydration. Gentle IV fluid resuscitation. Recheck level in a.m. #Hypertension, chronic Patient presented mildly hypotensive. Home medications include metoprolol, losartan, Lasix, HCTZ. Hold diuretics and ARB for now. We will restart metoprolol when blood pressure allows. No pharmacologic DVT prophylaxis. SCDs for DVT prophylaxis. Protonix for GI prophylaxis. Full code. Designated medical decision-maker is her daughter Malika Aguila at [phone]. Discussed case with Dr. Beard.
[2020-07-04 09:27] LABS: ALT (SGPT) 9 U/L (8-55); AST (SGOT) 14 U/L (5-34); Albumin 3.3 g/dL (3.4-4.8); Alkaline Phosphatase 62 U/L (40-110); Anion Gap 16 mmol/L (10-20); BUN (Urea Nitrogen) 34 mg/dL (9.8-20.1); Bilirubin, Total 0.5 mg/dL (0.2-1.2); Calc. Creatinine Clearance 0 mL/min (70-130); Calcium 8.4 mg/dL (7.8-10.44); Carbon Dioxide 19 mmol/L (23-31); Estimated GFR-MDRD 33; Globulin 2.6 g/dL (2.4-3.5); Glucose 127 mg/dL (83-110); Magnesium 1.7 mg/dL (1.6-2.6); Protein, Total 5.9 g/dL (6.0-8.3)
[2020-07-04 09:28] LABS: Chloride 107 mmol/L (98-107); Potassium 3.3 mmol/L (3.5-5.1); Sodium 139 mmol/L (136-145)
[2020-07-04 09:30] LABS: Troponin I 0.029 ng/mL (< 0.028)
[2020-07-04 09:37] LABS: Bilirubin Negative (Negative); Blood, Urine Negative (Negative); Clarity Clear (Clear); Glucose, Urine (Dipstick) Negative (Negative); Ketone, Urine Negative (Negative); Leukocyte Negative (Negative); Nitrite Negative (Negative); Protein, Urine (Dipstick) Negative (Neg-Trace); Urobilinogen 0.2 mg/dL (Less than 2)
--- NOTE | 2020-07-04 10:20 | RAD ---
CHEST 1 VIEW: COMPARISON: 05/16/2020. HISTORY: Dehydration. FINDINGS: There is atherosclerosis and elongation of the aorta. Enlarged cardiac silhouette. The pulmonary ve ssels and hilum are normal. Costophrenic angles are clear. Chronic changes, without consolidation o r mass. No pneumothorax or acute osseous abnormalities. Stable left-sided transvenous pacemaker. IMPRESSION: Atherosclerosis. No acute cardiopulmonary process. POS: [facility]
[2020-07-04] MEDS: Potassium Chloride 20 MEQ in Premix Bag 1 BAG IVPB SCH ×2 (10:46→13:26)
[2020-07-04] MEDS: Sodium Chloride 0.9% 1,000 ML IV SCH ×2 (10:46→19:35)
[2020-07-04 11:12] VITALS: BMI 41.3
[2020-07-04 11:26] LABS: Hemoglobin 10.8 g/dL (12.0-16.0); Red Blood Cell (RBC) Count 3.66 mill/uL (4.20-5.40); White Blood Cell (WBC) Count 16.3 thou/uL (4.8-10.8)
[2020-07-04 11:27] LABS: Band 28 % (5-11); Lymphocytes 3 % (21-51); Mean Corpuscular HGB CONC 32.5 g/dL (32.0-36.0); Mean Corpuscular Hemoglobin 29.5 pg (27.0-31.0); Mean Platelet Volume 9.2 fL (7.4-10.4); Platelet Count 203 thou/uL (130-400)
[2020-07-04 11:28] LABS: Monocytes 1 % (0-10)
[2020-07-04 11:29] LABS: Platelet Morphology Comment Appears Adequate
[2020-07-04 11:37] LABS: Neutrophil 68 % (42-75)
[2020-07-04 12:33] LABS: Lactic Acid 1.9 mmol/L (0.5-2.2)
[2020-07-04] MEDS: Cefepime 2 GM in Sodium Chloride 0.9% 100 ML IVPB SCH (16:38)
[2020-07-04 16:44] LABS: SARS-CoV-2 MS2 Positive; SARS-CoV-2 N Gene Negative; SARS-CoV-2 S Gene Negative; SARS-CoV-2 by NAA Not Detected (NotDetected); SARS-CoV-2 orf1ab Negative
[2020-07-04] MEDS ORDERED: Acetaminophen 325 MG TAB PO PRN (17:37)
[2020-07-04] MEDS ORDERED: Ondansetron PF 4 MG/2 ML Vial IVP PRN (17:37)
[2020-07-04] MEDS ORDERED: Acetaminophen 650 MG Suppository PR PRN (17:37)
[2020-07-04] MEDS ORDERED: Ondansetron ODT 4 MG TAB PO PRN (17:37)
[2020-07-04] MEDS: Pantoprazole 40 MG VIAL IVP SCH (20:40)
[2020-07-04] MEDS: Apixaban 5 MG TAB PO SCH (20:40)
[2020-07-04] MEDS ORDERED: Simvastatin 5 MG TAB PO SCH (21:00)
[2020-07-04] MEDS: Simvastatin 10 MG TAB PO SCH (21:18)
[2020-07-05 04:43] LABS: Band 6 % (5-11); Eosinophils 3 % (0-10); Hemoglobin 10.1 g/dL (12.0-16.0); Lymphocytes 7 % (21-51); MDiff Complete? YES; Mean Corpuscular HGB CONC 33.2 g/dL (32.0-36.0); Mean Corpuscular Hemoglobin 30.2 pg (27.0-31.0); Mean Corpuscular Volume 90.9 fL (78.0-98.0); Mean Platelet Volume 9.6 fL (7.4-10.4); Monocytes 5 % (0-10); Neutrophil 79 % (42-75); Platelet Count 177 thou/uL (130-400); RBC Distribution Width 13.2 % (11.5-14.5); Red Blood Cell (RBC) Count 3.33 mill/uL (4.20-5.40); White Blood Cell (WBC) Count 12.6 thou/uL (4.8-10.8)
[2020-07-05 04:56] LABS: Anion Gap 12 mmol/L (10-20); BUN (Urea Nitrogen) 35 mg/dL (9.8-20.1); Calc. Creatinine Clearance 56 mL/min (70-130); Carbon Dioxide 18 mmol/L (23-31); Chloride 109 mmol/L (98-107); Estimated GFR-MDRD 35; Glucose 110 mg/dL (83-110); Magnesium 2.4 mg/dL (1.6-2.6); Potassium 3.6 mmol/L (3.5-5.1); Sodium 135 mmol/L (136-145)
[2020-07-05] MEDS: Cefepime 2 GM in Sodium Chloride 0.9% 100 ML IVPB SCH (05:35)
[2020-07-05] MEDS ORDERED: Vancomycin HCl 750 MG in Sodium Chloride 0.9% 250 ML 250 ML IVPB SCH (08:00)
[2020-07-05] MEDS: Saccharomyces boulardii 250 MG CAP PO SCH (08:34)
[2020-07-05] MEDS: Apixaban 5 MG TAB PO SCH ×2 (08:35→20:24)
[2020-07-05] MEDS: Potassium Chloride 20 MEQ TAB PO SCH (08:35)
[2020-07-05] MEDS ORDERED: Losartan 25 MG TAB PO SCH (09:00)
--- NOTE | 2020-07-05 11:09 | PDOC.HOSPP ---
- Subjective Encounter Date: 07/05/20 Subjective: Patient reports feeling much better this morning. She reports she felt dizzy and lightheaded yesterday which led to her almost passing out. She was able to assist herself to the floor. Reports multiple hospitals recently for similar concerns. Antihypertensives have been weaned down. She denies chest pain, difficulty breathing. - Objective Vital Signs & Weight: Vital Signs (12 hours) Temp Pulse Resp BP BP Pulse Ox 07/05/20 08:35 97 07/05/20 08:02 98.5 F 96 16 140/60 97 07/05/20 04:00 98.6 F 98 19 121/53 L 97 07/04/20 23:09 99.4 F 95 16 102/52 L 95 Weight Weight 248 lb 3.2 oz I&O: 07/04/20 07/05/20 07/06/20 06:59 06:59 06:59 Intake Total 1730 Output Total 500 Balance 1230 Result Diagrams: 07/05/20 04:10 07/05/20 04:10 Hospitalist ROS - Review of Systems Constitutional: denies: fever, chills Respiratory: denies: cough, shortness of breath Cardiovascular: denies: chest pain, palpitations Gastrointestinal: denies: nausea, vomiting, abdominal pain Neurological: denies: weakness, confusion - Medication Medications: Active Medications Generic Name Dose Route Start Last Admin Trade Name Freq PRN Reason Stop Dose Admin Acetaminophen 650 mg 07/04/20 17:37 07/04/20 18:32 Acetaminophen 325 Mg Tab PO 650 mg Q4H PRN Administration Headache/Fever/Mild Pain (1-3) Apixaban 5 mg 07/04/20 21:00 07/05/20 08:35 Apixaban 5 Mg Tab PO 5 mg BID NIKHIL Administration Cefepime HCl 2 gm/ Sodium 100 mls @ 200 mls/hr 07/04/20 16:00 07/05/20 05:35 Chloride IVPB 100 mls 0700,1600 NIKHIL Administration Sodium Chloride 1,000 mls @ 70 mls/hr 07/04/20 09:00 07/04/20 19:35 Normal Saline 0.9% IV 1,000 mls .[id number] NIKHIL Administration Vancomycin HCl 750 mg/ Sodium 250 mls @ 250 mls/hr 07/05/20 08:00 07/05/20 08:34 Chloride IVPB 250 mls 0800 NIKHIL Administration Losartan Potassium 100 mg 07/05/20 09:00 07/05/20 08:35 Losartan 25 Mg Tab PO 100 mg DAILY NIKHIL Administration Metoprolol Succinate 50 mg 07/05/20 09:00 07/05/20 08:35 Metoprolol Succinate Xl 50 Mg Tab PO 50 mg DAILY NIKHIL Administration Pantoprazole Sodium 40 mg 07/04/20 21:00 07/04/20 20:40 Pantoprazole 40 Mg Vial IVP 40 mg 2100 NIKHIL Administration Potassium Chloride 20 meq 07/05/20 09:00 07/05/20 08:35 Potassium Chloride 20 Meq Tab PO 20 meq DAILY NIKHIL Administration Saccharomyces Boulardii 250 mg 07/05/20 09:00 07/05/20 08:34 Saccharomyces Boulardii 250 Mg Cap PO 250 mg DAILY NIKHIL Administration Simvastatin 10 mg 07/04/20 21:00 07/04/20 21:18 Simvastatin 10 Mg Tab PO 10 mg QPM NIKHIL Administration Sodium Chloride 10 ml 07/04/20 09:00 07/05/20 08:35 Flush - Normal Saline 10 Ml Syringe IVF 10 ml Q12HR NIKHIL Administration - Exam General Appearance: NAD, awake alert Eye: PERRL ENT: normocephalic atraumatic Heart: no murmur Heart - other findings: irregular rate and rhythm Respiratory: CTAB, no wheezes Gastrointestinal: soft, non-tender, non-distended Extremities: 1+ LE edema Neurological: cranial nerve grossly intact, normal sensation to touch, no weakness, no focal deficits Psychiatric: normal affect, normal behavior, A&O x 3 Hosp A/P (1) Atrial fibrillation with RVR Code(s): I48.91 - UNSPECIFIED ATRIAL FIBRILLATION Status: Resolved (2) Near syncope Status: Resolved (3) Sepsis Code(s): A41.9 - SEPSIS, UNSPECIFIED ORGANISM Status: Suspected (4) Hyperlipidemia Code(s): E78.5 - HYPERLIPIDEMIA, UNSPECIFIED Status: Chronic (5) Hypertension Code(s): I10 - ESSENTIAL (PRIMARY) HYPERTENSION Status: Chronic (6) Atrial fibrillation Code(s): I48.91 - UNSPECIFIED ATRIAL FIBRILLATION Status: Chronic (7) CHF (congestive heart failure) Code(s): I50.9 - HEART FAILURE, UNSPECIFIED Status: Chronic - Plan Sepsis, suspected Presented tachycardic, mildly hypotensive in ED. EMS reported SBP 80s, given 1L NS. Trop 0.029, BNP 316 WBCs down trending to 12.6 CXR negative, UA negative, blood culture NGTD Patient hospitalized for PNA in May, received abx. Stool studies negative thus far F/u C. diff Patient received vanc and cefepime, will discontinue at this time as no source of infection #Atrial fibrillation with RVR, permanent Presented heart rate 103, then shot up to [id number] in ER. Given digoxin 0.5 mg IVP and Cardizem 10 mg IVP with better rate control. Patient on Eliquis at home, will restart. Patient on metoprolol at home, will restart when blood pressures allow. Continue cardiac monitoring. TSH wnl #Near syncope Likely secondary to fluid volume deficit due to diarrhea. EMS reported SBP 80s. EKG afib w/ RVR Trop 0.029, BNP 316 BUN 34, creatinine 1.53. Had echocardiogram several days ago, Dr. Humphrey told her she does not have heart failure and the echo looked good. No signs of GI bleed, CBC stable. Trend troponins. Cardiac monitoring. #Dehydration BUN 34, creatinine 1.53 on admit. Multiple episodes of diarrhea. Gentle IV fluid resuscitation. Creatinine 1.43 this morning Fall precautions. #LAVELLE, suspected No baseline comparison at time of admission. Likely prerenal secondary to arrhythmia and dehydration. Gentle IV fluid resuscitation. Creatinine 1.43 this morning #Hypertension, chronic Patient presented mildly hypotensive. Home medications include metoprolol, losartan, Lasix Hold diuretics and ARB for now. We will restart metoprolol when blood pressure allows. No pharmacologic DVT prophylaxis. SCDs for DVT prophylaxis. Protonix for GI prophylaxis. Full code.
[2020-07-05 12:49] LABS: Bilirubin Negative (Negative); Blood, Urine Negative (Negative); Clarity Clear (Clear); Glucose, Urine (Dipstick) Normal (Negative); Ketone, Urine Negative (Negative); Leukocyte Negative Leu/uL (Negative); Nitrite Negative (Negative); Protein, Urine (Dipstick) 10 mg/dL (Neg-Trace); RBC/HPF 0-3 HPF (0-3); Specific Gravity, Urine 1.016 (1.002-1.036); Squamous Epithelial 0-3 HPF (0-3); Urobilinogen Normal mg/dL (Less than 2); WBC/HPF 0-3 HPF (0-3); pH, Urine 5.5 (5.0-9.0)
[2020-07-05 13:03] LABS: Bacteria/HPF Rare-Few HPF (None Seen)
[2020-07-05 13:04] LABS: Urine Culture Reflex No No
[2020-07-05 15:13] LABS: Troponin I 0.021 ng/mL (< 0.028)
[2020-07-05] MEDS: Sodium Chloride 0.9% 1,000 ML IV SCH ×2 (15:24→20:24)
[2020-07-05] MEDS: Simvastatin 10 MG TAB PO SCH (20:24)
[2020-07-05] MEDS: Pantoprazole 40 MG VIAL IVP SCH (20:24)
[2020-07-06] MEDS: Sodium Chloride 0.9% 1,000 ML IV SCH (05:14)
[2020-07-06 07:07] LABS: Vancomycin, Trough 8.9 ug/mL
[2020-07-06 08:16] LABS: #Lymphocytes 1.3 thou/uL (1.20-3.40); #Monocytes 0.5 thou/uL (0.11-0.59); #Neutrophils 3.3 thou/uL (1.40-6.50); %Basophils 0.4 % (0.0-1.0); %Eosinophils 0.7 % (0.0-10.0); %Lymphocytes 24.7 % (21.0-51.0); %Monocytes 9.4 % (0.0-10.0); %Neutrophils 64.8 % (42.0-75.0); Mean Corpuscular HGB CONC 31.5 g/dL (32.0-36.0); Mean Corpuscular Hemoglobin 28.9 pg (27.0-31.0); Mean Corpuscular Volume 91.8 fL (78.0-98.0); Mean Platelet Volume 8.9 fL (7.4-10.4); Platelet Count 160 thou/uL (130-400); RBC Distribution Width 13.3 % (11.5-14.5); Red Blood Cell (RBC) Count 3.48 mill/uL (4.20-5.40); White Blood Cell (WBC) Count 5.1 thou/uL (4.8-10.8)
[2020-07-06 08:36] LABS: Anion Gap 10 mmol/L (10-20); BUN (Urea Nitrogen) 26 mg/dL (9.8-20.1); Calc. Creatinine Clearance 65 mL/min (70-130); Carbon Dioxide 19 mmol/L (23-31); Chloride 112 mmol/L (98-107); Estimated GFR-MDRD 42; Glucose 79 mg/dL (83-110); Potassium 3.8 mmol/L (3.5-5.1); Sodium 137 mmol/L (136-145)
[2020-07-06] MEDS: Saccharomyces boulardii 250 MG CAP PO SCH (08:39)
[2020-07-06] MEDS: Potassium Chloride 20 MEQ TAB PO SCH (08:39)
[2020-07-06] MEDS: Apixaban 5 MG TAB PO SCH (08:40)
[2020-07-06] MEDS ORDERED: Losartan 25 MG TAB PO SCH (09:00)
[2020-07-06 12:02] VITALS: BP 130/60; TEMP 97.8
--- NOTE | 2020-07-07 14:07 | EKG ---
Test Reason : Blood Pressure : / mmHG Vent. Rate : 107 BPM Atrial Rate : 122 BPM P-R Int : 000 ms QRS Dur : 072 ms QT Int : 330 ms P-R-T Axes : 000 039 -06 degrees QTc Int : 440 ms Atrial fibrillation with rapid ventricular response Low voltage QRS Nonspecific T wave abnormality , probably digitalis effect Abnormal ECG Confirmed by DANYA HARDEN ([id number]), publishing editor WINSOME BHAKTA ([id number]) on 07/07/2020 2:07:39 PM Referred By: Confirmed By:DANYA HARDEN
--- NOTE | 2020-07-08 05:15 | DIS ---
DATE OF ADMISSION: 07/04/2020 DATE OF DISCHARGE: 07/06/2020 DISCHARGE DIAGNOSES: Atrial fibrillation with rapid ventricular response, presyncopal event, and dehydration. PRIMARY CARE PHYSICIAN: Leigha Bates NP HOSPITAL COURSE: The patient is an 80-year-old female with past medical history of atrial fibrillation on Eliquis and hypertension, presenting to the emergency department with near syncopal event. The patient reports that she was in her usual state of health until the previous afternoon, when she developed several bouts of diarrhea that lasted several hours. She reports having eaten out the afternoon and attributes it to the spicy shrimp that she consumed. Later that evening as she was planning to go to bed, she had gone up to the restroom and became lightheaded and fell forward. She denies hitting her head or loss of consciousness. No nausea or emesis during that time. No headaches or any focal neuro deficits. She denied any chest pain, heart palpitations, or shortness of breath. Denies any fevers. EMS reported her systolic blood pressure is found to be in the 80s, treated with 1 L of normal saline. In the emergency department, her blood pressure was 116/64, heart rate of 104. EKG revealed she was in AFib with RVR. Her white count was elevated at 16, lactic acid at 3.3, potassium was low at 3.3. Her magnesium was low at 1.6. Creatinine was bumped at 1.53. The patient met SIRS criteria due to tachycardia and elevated white count, and was started on SIRS protocol. Blood cultures and urine cultures were taken. The patient was started on vancomycin and cefepime and fluids. The patient also received digoxin 0.5 mg IV push x1 and Cardizem 10 mg IV push x1 for AFib with RVR with improvement in her rate. The patient was admitted to telemetry for further observation and treatment. The following day, the patient reports feeling much better. She reports the dizziness and lightheadedness had improved. She was able to ambulate to bathroom and shower. Preliminary stool cultures, blood cultures, and urine cultures were negative. At this time, antibiotics were discontinued and the patient was observed. C diff assay returned antigen positive; however, toxin negative. Results were discussed with Infectious Disease who agreed no antibiotic treatment was necessary as this has not been active infection. The patient remained afebrile. White count trended down. The symptoms have resolved. She has been ambulating at her baseline, tolerating p.o. and stable for discharge. PHYSICAL EXAMINATION: GENERAL: On exam, the patient was resting comfortably in bed. No acute distress. Awake, alert, oriented x3. HEART: Irregular rate and rhythm. No murmurs were appreciated. LUNGS: Clear to auscultation bilaterally. No wheezes, rubs, or gallops. ABDOMEN: Soft, nontender, nondistended. EXTREMITIES: She has +1 lower extremity edema bilaterally. DISCHARGE CONDITION: The patient was discharged home in stable condition. She has home health. DISCHARGE MEDICATIONS: No new medications were started. The patient was to continue her home medications includin. Simvastatin. 2. Metoprolol 50 mg p.o. daily. 3. Lasix. 4. Hydrochlorothiazide. 5. Apixaban. 6. Losartan. ACTIVITIES: As tolerated. DIET: heart healthy, low sodium, no salt added diet. FOLLOWUP: The patient is to follow up with her PCP in a week. Total time spent on the discharge of this patient was greater than 30 minutes. Job ID: [id number] [facility]
--- NOTE | 2020-07-08 23:25 | PQF ---
CLINICAL DOCUMENTATION CLARIFICATION FORM: Dear :Melvi Mixon Date / Time: 07/08/20 9661 Please exercise your independent, professional judgment in responding to the clarification form. Clinical indicators are provided on the bottom of this form for your review Please check appropriate box(es) to clarify if the following diagnosis has been ruled in our ruled out: Acute Kidney Failure [ x ] Ruled in diagnosis If Acute Kidney Failure is Ruled In can you please identify if related to: [ ] SIRS [x ] Dehydration [ ] Other condition: [ ] Ruled out diagnosis [ ] Improving [ ] Cannot rule out diagnosis [ ] Other diagnosis [ ] Unable to determine In addition, please specify: Present on Admission (POA): [ ] Yes [ ] No [ ] Unable to determine Physician Signature: Date/Time: For continuity of documentation, please document condition throughout progress notes and discharge summary. Thank You. To be completed by CDI/Coding staff for physician review: Present Clinical Indicators - Signs / Symptoms / Labs Results and Location in Medical Record [X] WBC 16.3; 12.6, Creatinine 1.53; 1.43, BUN 34l 35, GFR 33; 35 Laboratory 07/04 [X] BP 104/56, Pulse 104, Resp 20, Temp 100 Vital Signs 07/04 [X] Pt reports developed several bouts of diarrhea H&p p1 06/30 [facility] [X] When EMS arrived there was reported SBP in the 80s H&p p1 06/30 [facility] [X] Presented tachycardiac, midly hypotension H&p p4 06/30 [facility] [X] Dehdyration H&p p4 06/30 [facility] [X] LAVELLE suspected- likely prerenal 2/2 arrhythmia and dehydration H&p p4 06/30 [facility] [X] SIRS criteria DS p1 07/08 Dr Mixon Present Risk Factors Results and Location in Medical Record [X] 80 year-old Female H&p p1 06/30 [facility] [X] Permanent AFib H&p p1 06/30 [facility] [X] HTN H&p p1 06/30 [facility] Present Treatments Results and Location in Medical Record [X] IVF NS 1L MAR 07/04 [X] Laboratory series for Creatinine and BUN H&p p4 06/30 [facility] [X] Gentle hydration H&p p4 06/30 [facility] [X] SIRS protocol ED notes p2 07/04 CDS/Cigarette Filter Inspector Signature: Bonnie Walters Phone #: ext [phone] Date/Time: 07/08/2020 3726 This is a permanent part of the Medical Record [facility]
== END 2020-07-06 16:20 | disposition home health service (06) | DRG 683 ==
LOC: ERS 05:28 → 2NO 06:34 → OBSVTOIN 09:39
PROVIDERS: ADMIT Internal Medicine; ATTEND Internal Medicine
DX: N17.9 Acute kidney failure, unspecified (principal); I48.21 Permanent atrial fibrillation; R65.10 Systemic inflammatory response syndrome (SIRS) of non-infectious origin without acute organ dysfunction; E86.0 Dehydration; Z20.828 Contact with and (suspected) exposure to other viral communicable diseases; E78.5 Hyperlipidemia, unspecified; E87.6 Hypokalemia; I50.9 Heart failure, unspecified; I11.0 Hypertensive heart disease with heart failure; Z79.01 Long term (current) use of anticoagulants; Z79.899 Other long term (current) drug therapy; Z90.49 Acquired absence of other specified parts of digestive tract; Z95.0 Presence of cardiac pacemaker
CPT/HCPCS: 36415; 36600; 71045; 80048; 80053; 80202; 81001; 81003; 83605; 83735; 83880; 84443; 84484; 85007; 85025; 85027; 87040; 87045; 87046; 87324; 87328; 87329; 87427; 87449; 87493; 87635; 93005; 96365; 96367; 96375; C9113; J0692; J1160; J3370; J3475; J3480; J3490; J7050; U0003

== ENCOUNTER 2022-06-25 14:08 | Outpatient (CLI) | payer MEDICARE, MEDICAID | END 2022-06-25 14:09 | disposition home or self-care (01) | LOC: RAD-FRANK 14:08 | PROVIDERS: ATTEND Nurse Practitioner Family | DX: M25.551 Pain in right hip (principal); M25.552 Pain in left hip; M16.11 Unilateral primary osteoarthritis, right hip | CPT/HCPCS: 72170 ==

== ENCOUNTER 2022-11-07 23:14 | Inpatient (IN) | payer MEDICARE, MEDICAID ==
[2022-11-07 23:58] LABS: #Basophils 0.1 thou/uL (0.0-0.2); #Lymphocytes 0.5 thou/uL (1.20-3.40); #Monocytes 0.4 thou/uL (0.11-0.59); #Neutrophils 8.4 thou/uL (1.40-6.50); %Basophils 1.2 % (0.0-1.0); %Eosinophils 0.5 % (0.0-10.0); %Lymphocytes 4.7 % (21.0-51.0); %Monocytes 4.6 % (0.0-10.0); Hemoglobin 10.5 g/dL (12.0-16.0); Mean Corpuscular HGB CONC 33.1 g/dL (32.0-36.0); Mean Corpuscular Hemoglobin 29.6 pg (27.0-31.0); Mean Corpuscular Volume 89.2 fl (78.0-98.0); Mean Platelet Volume 8.3 fL (7.4-10.4); Platelet Count 268 10x3/uL (130-400); RBC Distribution Width 13.7 % (11.5-14.5); Red Blood Cell (RBC) Count 3.55 mill/uL (4.20-5.40); White Blood Cell (WBC) Count 9.5 10x3/uL (4.8-10.8)
[2022-11-08 00:16] LABS: ALT (SGPT) 15 U/L (8-55); AST (SGOT) 16 U/L (5-34); Alkaline Phosphatase 78 U/L (40-110); Anion Gap 16 mmol/L (10-20); BUN (Urea Nitrogen) 36 mg/dL (9.8-20.1); Bilirubin, Total 0.3 mg/dL (0.2-1.2); Calc. Creatinine Clearance 0 mL/min (70-130); Calcium 9.7 mg/dL (7.8-10.44); Carbon Dioxide 24 mmol/L (23-31); Chloride 100 mmol/L (98-107); Estimated GFR 22; Globulin 3.1 g/dL (2.4-3.5); Glucose 113 mg/dL (83-110); Potassium 4.2 mmol/L (3.5-5.1); Protein, Total 6.1 g/dL (5.8-8.1); Sodium 136 mmol/L (136-145)
[2022-11-08] MEDS ORDERED: Ondansetron PF 4 MG/2 ML Vial IVP PRN (02:24)
[2022-11-08] MEDS ORDERED: Acetaminophen 325 MG TAB PO PRN (02:24)
[2022-11-08] MEDS ORDERED: Ondansetron ODT 4 MG TAB PO PRN (02:24)
[2022-11-08] MEDS ORDERED: HYDROcodone/Acetaminophen 5/325 mg Tablet PO PRN (02:24)
[2022-11-08] MEDS ORDERED: Sodium Chloride 0.9% 1,000 ML IV SCH (02:30)
[2022-11-08 04:35] VITALS: BMI 41.8
[2022-11-08 05:31] LABS: Iron 17 ug/dL (50-170); Iron Binding Capacity, Total 193 mcg/dL (265-497)
[2022-11-08 05:51] LABS: Ferritin 254.88 ng/mL (10-291)
[2022-11-08 06:05] LABS: SARS-CoV-2 NAA Rapid Test Not Detected (NotDetected)
[2022-11-08 08:29] LABS: Bacteria/HPF 1+ HPF (None Seen); Bilirubin Negative (Negative); Blood, Urine 1+ (Negative); CAUTI Indications for Culture Alt mental st,lethar; Clarity Clear (Clear); Glucose, Urine (Dipstick) Normal (Negative); Ketone, Urine Negative (Negative); Leukocyte 250 Leu/uL (Negative); Nitrite Negative (Negative); Protein, Urine (Dipstick) 10 mg/dL (Neg-Trace); RBC/HPF 21-50 HPF (0-3); Specific Gravity, Urine 1.021 (1.002-1.036); Urobilinogen Normal mg/dL (Less than 2); pH, Urine 6.5 (5.0-9.0)
[2022-11-08 08:31] LABS: Urine Culture Reflex Yes Yes
[2022-11-08] MEDS ORDERED: Apixaban 5 MG TAB PO SCH ×2 (09:00)
[2022-11-08] MEDS: Saccharomyces boulardii 250 MG CAP PO SCH (10:06)
[2022-11-08] MEDS ORDERED: Simvastatin 10 MG TAB PO SCH (21:00)
[2022-11-08] MEDS: Apixaban 2.5 MG TAB PO SCH (21:58)
[2022-11-08] MEDS: Simvastatin 10 MG TAB PO SCH (21:59)
[2022-11-09 07:54] LABS: #Basophils 0.1 thou/uL (0.0-0.2); #Eosinphils 0.1 thou/uL (0.0-0.7); #Lymphocytes 1.2 thou/uL (1.20-3.40); #Monocytes 0.3 thou/uL (0.11-0.59); #Neutrophils 3.6 thou/uL (1.40-6.50); %Basophils 1.6 % (0.0-1.0); %Eosinophils 1.6 % (0.0-10.0); %Lymphocytes 23.1 % (21.0-51.0); %Monocytes 5.9 % (0.0-10.0); %Neutrophils 67.9 % (42.0-75.0); Hemoglobin 9.9 g/dL (12.0-16.0); Mean Corpuscular Hemoglobin 29.8 pg (27.0-31.0); Mean Corpuscular Volume 90.3 fl (78.0-98.0); Mean Platelet Volume 8.2 fL (7.4-10.4); Platelet Count 267 10x3/uL (130-400); RBC Distribution Width 13.7 % (11.5-14.5); Red Blood Cell (RBC) Count 3.32 mill/uL (4.20-5.40); White Blood Cell (WBC) Count 5.4 10x3/uL (4.8-10.8)
[2022-11-09] MEDS: cefTRIAXone\\ROCEPHIN 1 GM in Sodium Chloride 0.9% 100 ML IVPB SCH (07:58)
[2022-11-09] MEDS: Saccharomyces boulardii 250 MG CAP PO SCH (07:59)
[2022-11-09] MEDS: Apixaban 2.5 MG TAB PO SCH ×2 (07:59→20:38)
[2022-11-09 08:10] LABS: ALT (SGPT) 16 U/L (8-55); AST (SGOT) 20 U/L (5-34); Albumin 2.7 g/dL (3.4-4.8); Alkaline Phosphatase 66 U/L (40-110); Anion Gap 12 mmol/L (10-20); BUN (Urea Nitrogen) 30 mg/dL (9.8-20.1); Bilirubin, Total 0.2 mg/dL (0.2-1.2); Calc. Creatinine Clearance 49 mL/min (70-130); Calcium 8.9 mg/dL (7.8-10.44); Carbon Dioxide 24 mmol/L (23-31); Chloride 104 mmol/L (98-107); Estimated GFR 31; Glucose 82 mg/dL (83-110); Magnesium 2.1 mg/dL (1.6-2.6); Phosphorus 3.2 mg/dL (2.3-4.7); Potassium 3.8 mmol/L (3.5-5.1); Protein, Total 5.7 g/dL (5.8-8.1); Sodium 136 mmol/L (136-145)
[2022-11-09] MEDS: Ferrous Sulfate 325 MG TAB PO SCH (16:32)
[2022-11-09] MEDS: Simvastatin 10 MG TAB PO SCH (20:38)
[2022-11-10] MEDS: Ferrous Sulfate 325 MG TAB PO SCH ×2 (08:42→16:32)
[2022-11-10] MEDS: Apixaban 2.5 MG TAB PO SCH ×2 (08:42→21:45)
[2022-11-10] MEDS: cefTRIAXone\\ROCEPHIN 1 GM in Sodium Chloride 0.9% 100 ML IVPB SCH ×2 (08:43→11:26)
[2022-11-10] MEDS: Saccharomyces boulardii 250 MG CAP PO SCH (08:43)
[2022-11-10] MEDS: Simvastatin 10 MG TAB PO SCH (21:45)
[2022-11-11] MEDS: cefTRIAXone\\ROCEPHIN 1 GM in Sodium Chloride 0.9% 100 ML IVPB SCH (08:13)
[2022-11-11] MEDS: Ferrous Sulfate 325 MG TAB PO SCH ×2 (08:13→17:05)
[2022-11-11] MEDS: Apixaban 2.5 MG TAB PO SCH ×2 (08:13→20:04)
[2022-11-11] MEDS: Saccharomyces boulardii 250 MG CAP PO SCH (08:13)
[2022-11-11 08:30] LABS: #Monocytes 0.8 thou/uL (0.11-0.59); #Neutrophils 5.6 thou/uL (1.40-6.50); %Basophils 0.1 % (0.0-1.0); %Eosinophils 0.6 % (0.0-10.0); %Lymphocytes 24.1 % (21.0-51.0); %Monocytes 9.1 % (0.0-10.0); %Neutrophils 66.1 % (42.0-75.0); Hemoglobin 10.2 g/dL (12.0-16.0); Mean Corpuscular HGB CONC 31.3 g/dL (32.0-36.0); Mean Corpuscular Hemoglobin 28.3 pg (27.0-31.0); Mean Corpuscular Volume 90.5 fl (78.0-98.0); Mean Platelet Volume 8.5 fL (7.4-10.4); Platelet Count 252 10x3/uL (130-400); RBC Distribution Width 13.8 % (11.5-14.5); White Blood Cell (WBC) Count 8.4 10x3/uL (4.8-10.8)
[2022-11-11 08:50] LABS: Anion Gap 9 mmol/L (10-20); BUN (Urea Nitrogen) 17 mg/dL (9.8-20.1); Calc. Creatinine Clearance 77 mL/min (70-130); Calcium 8.7 mg/dL (7.8-10.44); Carbon Dioxide 25 mmol/L (23-31); Chloride 107 mmol/L (98-107); Estimated GFR 53; Glucose 98 mg/dL (83-110); Potassium 4.3 mmol/L (3.5-5.1); Sodium 137 mmol/L (136-145)
[2022-11-11] MEDS: Simvastatin 10 MG TAB PO SCH (20:04)
[2022-11-12 06:26] LABS: #Lymphocytes 2.2 thou/uL (1.20-3.40); #Monocytes 0.7 thou/uL (0.11-0.59); #Neutrophils 5.8 thou/uL (1.40-6.50); %Basophils 0.4 % (0.0-1.0); %Eosinophils 0.5 % (0.0-10.0); %Lymphocytes 25.3 % (21.0-51.0); %Monocytes 7.7 % (0.0-10.0); %Neutrophils 66.2 % (42.0-75.0); Hemoglobin 9.9 g/dL (12.0-16.0); Mean Corpuscular HGB CONC 32.2 g/dL (32.0-36.0); Mean Corpuscular Hemoglobin 28.8 pg (27.0-31.0); Mean Corpuscular Volume 89.4 fl (78.0-98.0); Mean Platelet Volume 8.3 fL (7.4-10.4); Platelet Count 252 10x3/uL (130-400); RBC Distribution Width 13.8 % (11.5-14.5); Red Blood Cell (RBC) Count 3.44 mill/uL (4.20-5.40); White Blood Cell (WBC) Count 8.7 10x3/uL (4.8-10.8)
[2022-11-12 06:48] LABS: Anion Gap 10 mmol/L (10-20); BUN (Urea Nitrogen) 17 mg/dL (9.8-20.1); Calc. Creatinine Clearance 88 mL/min (70-130); Calcium 8.6 mg/dL (7.8-10.44); Carbon Dioxide 22 mmol/L (23-31); Chloride 106 mmol/L (98-107); Estimated GFR 63; Glucose 99 mg/dL (83-110); Potassium 4.1 mmol/L (3.5-5.1); Sodium 134 mmol/L (136-145)
[2022-11-12] MEDS: cefTRIAXone\\ROCEPHIN 1 GM in Sodium Chloride 0.9% 100 ML IVPB SCH (08:48)
[2022-11-12] MEDS: Apixaban 2.5 MG TAB PO SCH (08:48)
[2022-11-12] MEDS: Ferrous Sulfate 325 MG TAB PO SCH ×2 (08:48→17:48)
[2022-11-12] MEDS: Saccharomyces boulardii 250 MG CAP PO SCH (08:48)
[2022-11-12] MEDS: Simvastatin 10 MG TAB PO SCH (20:28)
[2022-11-12] MEDS: Apixaban 5 MG TAB PO SCH (20:28)
[2022-11-13 04:36] VITALS: TEMP 98.6
[2022-11-13 08:03] VITALS: BP 131/76
[2022-11-13] MEDS: Apixaban 5 MG TAB PO SCH (08:03)
[2022-11-13] MEDS: Ferrous Sulfate 325 MG TAB PO SCH (08:03)
[2022-11-13] MEDS: Saccharomyces boulardii 250 MG CAP PO SCH (08:03)
== END 2022-11-13 09:53 | DRG 683 ==
LOC: ERS 23:14 → 2NO 11-08 01:31 → OBSVTOIN 11-08 08:49 → SURG A 11-08 20:28
PROVIDERS: ADMIT Student in an Organized Health Care Education/Training Program; ATTEND Hospitalist
DX: N17.9 Acute kidney failure, unspecified (principal); I48.21 Permanent atrial fibrillation; N39.0 Urinary tract infection, site not specified; Z20.822 Contact with and (suspected) exposure to COVID-19; Z66 Do not resuscitate; I12.9 Hypertensive chronic kidney disease with stage 1 through stage 4 chronic kidney disease, or unspecified chronic kidney disease; D63.1 Anemia in chronic kidney disease; E78.2 Mixed hyperlipidemia; E86.0 Dehydration; M17.0 Bilateral primary osteoarthritis of knee; Z79.899 Other long term (current) drug therapy; Z79.01 Long term (current) use of anticoagulants; Z90.49 Acquired absence of other specified parts of digestive tract; Z95.0 Presence of cardiac pacemaker
CPT/HCPCS: 36415; 70450; 71045; 72125; 76770; 80048; 80053; 81001; 82607; 82728; 83540; 83550; 83735; 83880; 84100; 85025; 87040; 87086; 93005; 93306; 93880; G0378; J0696; J3490; J7050